=== PATIENT | female | born 1960 | race Two or more races ===

== ENCOUNTER 2024-09-06 08:44 | Outpatient (OUT) | payer OTHER, SELFPAY ==
--- NOTE | 2024-09-06 08:56 | MM_ITS ---
Patient Name: IRIS MELGAR MR#: [id number] : 1960 Exam Date: 09/06/2024 Ordering Doctor: Radha Castellanos RADIOLOGY REPORT PROCEDURE: MM TOMOSYNTHESIS SCREENING BI COMPARISON: MG MAMM SCREEN FRANCISCA W CAD, 08/12/2016. MG MAMM SCREEN FRANCISCA W CAD, 06/20/2014. INDICATIONS: Screening Calculator Name NCI Breast Cancer Risk Assessment Tool 5 Year Breast Cancer Risk 2.00% Lifetime Breast Cancer Risk 8.70% Personal Breast Cancer No Personal Ovarian Cancer No Treatments None Family Cancers Aunt-paternal with breast cancer at age 40; Sister with breast cancer at age 65. LOCATION: [facility] BREAST COMPOSITION: There are scattered areas of fibroglandular density. FINDINGS: DIAGNOSTIC CATEGORY 2--BENIGN FINDING: RIGHT BREAST: No significant suspicious finding. No significant change has occurred. LEFT BREAST: No significant suspicious finding. Scattered benign-appearing nodules are present. No significant change has occurred. RECOMMENDATIONS: ROUTINE MAMMOGRAM AND CLINICAL EVALUATION IN 12 MONTHS. PLEASE NOTE: A NORMAL MAMMOGRAM DOES NOT EXCLUDE THE POSSIBILITY OF BREAST CANCER. A CLINICALLY SUSPICIOUS PALPABLE LUMP SHOULD BE BIOPSIED. Dictated by: Waldemar Gamboa M.D. on 09/08/2024 at 09:32 Approved by: Waldemar Gamboa M.D. on 09/08/2024 at 09:59
== END 2024-09-06 08:45 | disposition home or self-care (01) ==
LOC: MAMMO 08:50
PROVIDERS: PCP Nurse Practitioner Family; Visit Provider Nurse Practitioner Family
DX: Z12.31 Encounter for screening mammogram for malignant neoplasm of breast (principal); Z80.3 Family history of malignant neoplasm of breast
CPT/HCPCS: 77063; 77067